=== PATIENT | female | born 1960 | race Caucasian/White ===

== ENCOUNTER 2018-02-02 14:12 | Emergency (ER) | payer BC, OTHER ==
[2018-02-02] MEDS ORDERED: LORazepam 2 MG/ML SDV IVPUSH ONE (14:28)
[2018-02-02] MEDS ORDERED: Sodium Chloride 0.9% 1,000 ML IV SCH ×2 (14:30→16:15)
--- NOTE | 2018-02-02 14:30 | EDM.PDOC ---
ED HPI GENERAL MEDICAL PROBLEM - General Chief Complaint: Neurological Problem Stated Complaint: MED[facility] Time Seen by Provider: 02/02/18 14:30 Source of Information: Reports: Patient, Family History Limitations: Reports: No Limitations - History of Present Illness INITIAL COMMENTS - FREE TEXT/NARRATIVE: PT HAD A SUDDEN ONSET OF MARKED VERTIGO. sHE WAS VOMITING AND WAS VERY UNCOMFORTABLE. sHE DID NOT HAVE A HEADACHE. sHE HAS HAD THIS IN THE PAST AND THE PATTERN IS THE SAME. Onset: Today, Sudden Duration: Hour(s):, Getting Worse Location: Reports: Head, Generalized Associated Symptoms: Reports: Diaphoresis, Nausea/Vomiting, Other ( MARKED VERTIGO. 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: , Spontaneous Neurological History: Reports: Migraines, Vertigo Oncologic (Cancer) History: Reports: Cervix - Past Surgical History Female Surgical History: Reports: D&C, Hysterectomy Social & Family History - Tobacco Use Smoking Status *Q: Never Smoker - Caffeine Use Caffeine Use: Reports: Soda - Recreational Drug Use Recreational Drug Use: No ED ROS GENERAL - Review of Systems Review Of Systems: See Below Constitutional: Reports: No Symptoms HEENT: Reports: Vertigo Respiratory: Reports: No Symptoms Cardiovascular: Reports: No Symptoms Endocrine: Reports: No Symptoms GI/Abdominal: Reports: Nausea, Vomiting : Reports: No Symptoms Musculoskeletal: Reports: No Symptoms Neurological: Reports: No Symptoms Psychiatric: Reports: Anxiety ED EXAM, NEURO - Physical Exam Exam: See Below Text/Narrative:: PT ARRIVED WITH VERTIGO AND SHE WAS VOMITING . Exam Limited By: Other (PT HAS HAD SIMILAR SYMPTOPMS IN THE PAST.) General Appearance: Alert, Anxious, Moderate Distress, Other (PUPILS EQUAL AND REACTIVE, NYSTAGUMUS IS PRESENT. ) Ears: Normal TMs Nose: Normal Inspection Throat/Mouth: Normal Inspection Head Exam: Atraumatic Neck: Other ( NO CAROTID BRUITS. tHE LAST EPISODE SHE HAD WAS ABOUT 4 YEARS AGO. ) Respiratory/Chest: No Respiratory Distress Cardiovascular: Regular Rate, Rhythm GI/Abdominal: Soft, Non-Tender (Female) Exam: Deferred Rectal (Female) Exam: Deferred Neurological: Alert, Oriented x 3, Other ( VERTIGO) Back Exam: Normal Inspection Extremities: Normal Inspection Psychiatric: Anxious Course - Vital Signs Last Recorded V/S: Last Vital Signs Temp 36.4 C 02/02/18 14:16 Pulse 80 02/02/18 17:22 Resp 16 02/02/18 15:52 BP 144/90 H 02/02/18 17:22 Pulse Ox 99 02/02/18 17:22 - Orders/Labs/Meds Labs: Laboratory Tests 02/02/18 02/02/18 02/02/18 Range/Units 14:27 14:27 16:19 WBC 11.5 H (4.5-11.0) K/uL RBC 4.85 (3.30-5.50) M/uL Hgb 14.5 (12.0-15.0) g/dL Hct 42.3 (36.0-48.0) % MCV 87 (80-98) fL MCH 30 (27-31) pg MCHC 34 (32-36) % Plt Count 264 (150-400) K/uL Neut % (Auto) 86 H (36-66) % Lymph % (Auto) 9 L (24-44) % [place] % (Auto) 5 (2-6) % Eos % (Auto) 1 L (2-4) % Baso % (Auto) 0 (0-1) % Sodium 137 L (140-148) mmol/L Potassium 3.1 L (3.6-5.2) mmol/L Chloride 102 (100-108) mmol/L Carbon Dioxide 19 L (21-32) mmol/L Anion Gap 19.1 H (5.0-14.0) mmol/L BUN 19 H (7-18) mg/dL Creatinine 1.0 (0.6-1.0) mg/dL Est Cr Clr Drug Dosing 46.27 mL/min Estimated GFR (MDRD) 57 L (>60) Glucose 125 H (74-106) mg/dL Calcium 9.5 (8.5-10.1) mg/dL Total Bilirubin 0.7 (0.2-1.0) mg/dL AST 20 (15-37) U/L ALT 28 (12-78) U/L Alkaline Phosphatase 112 (46-116) U/L Total Protein 7.8 (6.4-8.2) g/dL Albumin 4.3 (3.4-5.0) g/dL Globulin 3.5 (2.3-3.5) g/dL Albumin/Globulin Ratio 1.2 (1.2-2.2) Urine Color Yellow Urine Appearance Clear Urine pH 8.0 (4.5-8.0) Ur Specific [place] 1.015 (1.008-1.030) Urine Protein Negative (NEGATIVE) mg/dL Urine Glucose (UA) Normal (NEGATIVE) mg/dL Urine Ketones 15 H (NEGATIVE) mg/dL Urine Occult Blood Negative (NEGATIVE) Urine Nitrite Negative (NEGATIVE) Urine Bilirubin Negative (NEGATIVE) Urine Urobilinogen Normal (NORMAL) mg/dL Ur Leukocyte Esterase Small (NEGATIVE) Urine RBC 5-10 H (0-5) Urine WBC 0-5 (0-5) Ur Epithelial Cells Few Amorphous Sediment Few Urine Bacteria Not seen Urine Mucus Not seen Meds: Medications Discontinued Medications Generic Name Dose Route Start Last Admin Trade Name Villaq PRN Reason Stop Dose Admin Sodium Chloride 1,000 mls @ 999 mls/hr 02/02/18 14:30 02/02/18 14:47 Normal Saline IV 999 mls/hr ASDIRECTED TAMARA Administration Sodium Chloride 1,000 mls @ 400 mls/hr 02/02/18 16:15 02/02/18 16:16 Normal Saline IV 400 mls/hr ASDIRECTED TAMARA Administration Lorazepam 0.5 mg 02/02/18 14:28 02/02/18 14:47 Ativan IVPUSH 02/02/18 14:29 0.5 mg ONETIME ONE Administration Meclizine HCl 25 mg 02/02/18 15:51 02/02/18 16:13 Antivert PO 02/02/18 15:52 25 mg ONETIME ONE Administration Potassium Chloride 20 meq 02/02/18 17:01 02/02/18 17:59 Klor-Con M20 PO 20 meq ONETIME ONE Administration - Re-Assessments/Exams Free Text/Narrative Re-Assessment/Exam: 02/02/18 17:45 pT HAD NORMAL LABS. sHE GRADUALLY HAS IMPROVED, sHE WAS GIVEN ATIVAN, ZOFORAN ND ANTIVERT PLUS FLUIDS. Departure - Departure Time of Disposition: 18:15 Disposition: Home, Self-Care 01 Condition: Fair Clinical Impression: Inner ear dysfunction - Discharge Information Instructions: Labyrinthitis, [id number] Referrals: Francisca Whatley PA [Primary Care Provider] - Forms: ED Department Discharge Care Plan Goals: PUSH FLUIDS, LOW ACTIVITY, ZOFORAN SUBLING 4 MG Q6H PRN , ANTIVERT 25 MG TID FOR THR NEXT 3 DAYS AND THEN USE PRN
[2018-02-02] MEDS ORDERED: Meclizine 25 MG Tab PO ONE (15:51)
[2018-02-02] MEDS ORDERED: Potassium Chloride 20 MEQ Tab.ER PO ONE (17:01)
== END 2018-02-02 18:40 | disposition home or self-care (01) ==
LOC: JP.ED 14:12
DX: H83.2X9 Labyrinthine dysfunction, unspecified ear (principal); R11.2 Nausea with vomiting, unspecified
CPT/HCPCS: 36415; 80053; 81001; 85025; 96361; 96374; 99284; A9270; J2060; J7030